=== PATIENT | female | born 1995 | race Caucasian/White ===

== ENCOUNTER 2019-06-23 02:04 | Inpatient (IN) | payer OTHER ==
[2019-06-23] MEDS ORDERED: D10/0.45% NACL + KCL 40 MEQ 1,000 ML IV (02:13)
[2019-06-23] MEDS ORDERED: DEXTROSE 10%/0.45% NACL 1,000 ML IV (02:13)
[2019-06-23] MEDS ORDERED: NS + KCL 40 MEQ 1,000 ML IV (02:13)
[2019-06-23] MEDS: LACTATED RINGER'S 650 ML IV (02:29)
[2019-06-23] MEDS: SOD CHLORIDE 0.9% 1,000 ML IV ×2 (02:29→05:54)
[2019-06-23] MEDS ORDERED: DEXTROSE 50% 50 ML SYRINGE IV ×2 (02:30)
[2019-06-23 02:36] LABS: AADO2 Arterial 65.1 mmHg (7.0-24.0); Arterial Base Excess -20.8 mmol/L (-3.0-3); Arterial Blood Gas Oxygen Sat 99.5 mmHG (95.0-98.0); Arterial COHb 0.3 % (0.0-3.0); Arterial Fraction of Oxyhgb 98.7 % (93.0-99.0); Arterial HCO3 6.2 mmol/L (22.0-26.0); Arterial MetHb 0.5 % (0.0-1.5); Arterial pCO2 18.5 mmhg (35-45); MODE MASK - NRB; Site LB
[2019-06-23] MEDS: INSULIN REGULAR, HUMAN 100 UNIT in SOD CHLORIDE 0.9% 100 ML IV (03:27)
[2019-06-23 03:30] LABS: ADD MAN DIFF? NO
[2019-06-23 03:43] LABS: HEMOGLOBIN A1C > 14.0 % (0-5.9)
[2019-06-23 03:43] LABS: ADD UMIC YES; UR ASCORBIC ACID NEGATIVE (NEGATIVE); UR BILIRUBIN (Dip) NEGATIVE (NEGATIVE); UR BLOOD (Dip) NEGATIVE (NEGATIVE); UR CLARITY CLEAR (CLEAR); UR COLOR YELLOW (YELLOW); UR GLUCOSE (Dip) 3+ mg/dL (NEGATIVE); UR KETONES (Dip) 1+ mg/dL (NEGATIVE); UR LEUKOCYTE ESTERASE (Dip) NEGATIVE Leu/ul (NEGATIVE); UR NITRITE (Dip) NEGATIVE (NEGATIVE); UR RBC 1 /HPF (0-5); UR SPECIFIC GRAVITY (Dip) 1.021 (1.003-1.030); UR TOTAL PROTEIN (Dip) 1+ mg/dl (NEGATIVE); UR UROBILINOGEN (Dip) NEGATIVE (NEGATIVE); UR WBC 1 /HPF (0-5)
[2019-06-23 04:04] LABS: ABNORMAL IP MESSAGE 1; BASOPHIL # 0.1 10^3/ul (0.0-0.1); BASOPHILS % 0.4 % (0.0-2.0); HEMATOCRIT 46.1 % (37.0-47.0); HEMOGLOBIN 13.3 g/dl (12.0-16.0); LYMPHOCYTES # 1.6 10^3/ul (0.8-2.9); LYMPHOCYTES % 13.8 % (15.0-51.0); MEAN CORPUSCULAR HEMOGLOBIN 28.1 pg (29.0-33.0); MEAN CORPUSCULAR HGB CONC 28.9 g/dl (32.0-37.0); MEAN CORPUSCULAR VOLUME 97.3 fl (82.0-101.0); MEAN PLATELET VOLUME 13.8 fl (7.4-10.4); MONOCYTE # 0.4 10^3/ul (0.3-0.9); MONOCYTES % 3.2 % (0.0-11.0); NEUTROPHIL # 9.2 10^3/ul (1.6-7.5); NEUTROPHILS % 80.4 % (39.0-77.0); NUCLEATED RED BLOOD CELLS% 0.3 /100WBC (0.0-0.0); PLATELET COUNT 211 10^3/UL (140-415); RED BLOOD COUNT 4.74 10^6/ul (4.20-5.40); RED CELL DISTRIBUTION WIDTH 16.4 % (11.5-14.5)
[2019-06-23 04:04] LABS: WHITE BLOOD COUNT 11.4 10^3/ul (4.8-10.8)
[2019-06-23 04:06] LABS: POSITIVE DIFF @See below
[2019-06-23 04:59] LABS: MODE NASAL CANNULA; MetHgb Venous 0.6 %; Sample Type Blood venous; Site VENOUS LINE; Venous COHb 0.3 %; Venous Fraction OxyHgb 86.6 %; Venous Oxygen Sat 87.4 mmHG (55.0-75.0)
[2019-06-23 05:18] LABS: ANION GAP 28 (5-13); CALCIUM 7.7 mg/dl (8.4-10.2); CHLORIDE 118 mmol/L (97-110); MAGNESIUM 3.7 mg/dl (1.7-2.5); PHOSPHORUS 9.9 mg/dl (2.5-4.9); SODIUM 152 mmol/L (135-144)
[2019-06-23 05:27] LABS: Estimated GFR 10 mL/min (>60)
[2019-06-23] MEDS: NA BICARBONATE 8.4% 50 ML SYG IV ×2 (05:30)
[2019-06-23 05:36] LABS: SALICYLATE < 1.0 mg/dl (5.0-30.0)
[2019-06-23 05:36] LABS: ACETAMINOPHEN < 10.0 ug/ml (10.0-30.0)
[2019-06-23 05:39] LABS: BLOOD UREA NITROGEN 161 mg/dl (7-20); CREATININE 5.22 mg/dl (0.44-1.00)
[2019-06-23 05:42] LABS: CARBON DIOXIDE 6 mmol/L (21-31); GLUCOSE 1052 mg/dl (70-220)
[2019-06-23] MEDS ORDERED: ONDANSETRON 4 MG INJ IV (06:00)
[2019-06-23] MEDS ORDERED: ACETAMINOPHEN 325 MG TAB PO ×2 (06:00→08:00)
[2019-06-23 06:03] LABS: AMPHETAMINE/METHAMPHETAMINE Negative (NEGATIVE); BARBITURATES Negative (NEGATIVE); BENZODIAZEPINES Negative (NEGATIVE); CANNABINOIDS Negative (NEGATIVE); COCAINE Negative (NEGATIVE); OPIATES Negative (NEGATIVE)
[2019-06-23 06:23] LABS: MODE NASAL CANNULA; MetHgb Venous 0.4 %; Site VENOUS LINE; Venous COHb 0.3 %; Venous Fraction OxyHgb 86.5 %; Venous Oxygen Sat 87.1 mmHG (55.0-75.0); Venous Total Hemglobin 12.7 g/dl
[2019-06-23 06:25] LABS: ETHANOL < 10.0 mg/dl (0-0)
[2019-06-23 06:28] LABS: ACETONE POSITIVE (NEGATIVE)
[2019-06-23 07:10] LABS: ANION GAP 23 (5-13); CALCIUM 7.5 mg/dl (8.4-10.2); CHLORIDE 124 mmol/L (97-110); MAGNESIUM 3.7 mg/dl (1.7-2.5); PHOSPHORUS 8.2 mg/dl (2.5-4.9); SODIUM 156 mmol/L (135-144)
[2019-06-23 07:16] LABS: CARBON DIOXIDE 9 mmol/L (21-31); CREATININE 4.76 mg/dl (0.44-1.00); Estimated GFR 11 mL/min (>60)
[2019-06-23 07:18] LABS: BLOOD UREA NITROGEN 149 mg/dl (7-20)
[2019-06-23] MEDS: NS + KCL 30 MEQ 1,000 ML IV ×3 (07:23→11:58)
[2019-06-23 07:33] LABS: GLUCOSE 861 mg/dl (70-220)
[2019-06-23] MEDS ORDERED: HYDROmorphONE 0.5 MG/0.5 ML SYG IV (08:00)
[2019-06-23 09:46] LABS: MODE ROOM AIR; MetHgb Venous 0.3 %; Sample Type Blood venous; Site VENOUS LINE; Venous COHb 0.1 %; Venous Fraction OxyHgb 77.7 %; Venous Total Hemglobin 12.9 g/dl
[2019-06-23 10:12] LABS: ANION GAP 15 (5-13); CALCIUM 7.5 mg/dl (8.4-10.2); CARBON DIOXIDE 14 mmol/L (21-31); CHLORIDE 132 mmol/L (97-110); MAGNESIUM 3.5 mg/dl (1.7-2.5); PHOSPHORUS 5.1 mg/dl (2.5-4.9); POTASSIUM 5.1 mmol/L (3.5-5.1)
[2019-06-23 10:17] LABS: Estimated GFR 13 mL/min (>60)
[2019-06-23 10:23] LABS: BLOOD UREA NITROGEN 141 mg/dl (7-20); CREATININE 4.12 mg/dl (0.44-1.00)
[2019-06-23 10:25] LABS: GLUCOSE 638 mg/dl (70-220); SODIUM 161 mmol/L (135-144)
[2019-06-23 13:45] LABS: ADD UMIC YES; UR ASCORBIC ACID NEGATIVE (NEGATIVE); UR BACTERIA FEW /HPF (NONE SEEN); UR BILIRUBIN (Dip) NEGATIVE (NEGATIVE); UR BLOOD (Dip) 2+ mg/dL (NEGATIVE); UR BUDDING YEAST FEW /HPF (NONE SEEN); UR CLARITY CLOUDY (CLEAR); UR COLOR YELLOW (YELLOW); UR GLUCOSE (Dip) 3+ mg/dL (NEGATIVE); UR KETONES (Dip) 1+ mg/dL (NEGATIVE); UR LEUKOCYTE ESTERASE (Dip) NEGATIVE Leu/ul (NEGATIVE); UR MUCUS FEW /HPF (NONE SEEN); UR NITRITE (Dip) NEGATIVE (NEGATIVE); UR RBC 1 /HPF (0-5); UR SPECIFIC GRAVITY (Dip) 1.013 (1.003-1.030); UR TOTAL PROTEIN (Dip) NEGATIVE (NEGATIVE); UR UROBILINOGEN (Dip) NEGATIVE (NEGATIVE); UR WBC 3 /HPF (0-5)
[2019-06-23 14:17] LABS: MODE ROOM AIR; MetHgb Venous 0.5 %; Sample Type Blood venous; Site VENOUS LINE; Venous COHb 0.3 %; Venous Fraction OxyHgb 89.4 %; Venous Oxygen Sat 90.1 mmHG (55.0-75.0); Venous Total Hemglobin 12.4 g/dl
[2019-06-23 15:04] LABS: ANION GAP 6 (5-13); BLOOD UREA NITROGEN 117 mg/dl (7-20); CALCIUM 7.6 mg/dl (8.4-10.2); CARBON DIOXIDE 20 mmol/L (21-31); CHLORIDE 137 mmol/L (97-110); CREATININE 3.36 mg/dl (0.44-1.00); Estimated GFR 17 mL/min (>60); GLUCOSE 348 mg/dl (70-220); MAGNESIUM 3.3 mg/dl (1.7-2.5); PHOSPHORUS 2.7 mg/dl (2.5-4.9); POTASSIUM 4.9 mmol/L (3.5-5.1)
[2019-06-23 15:19] LABS: SODIUM 163 mmol/L (135-144)
[2019-06-23] MEDS: D10/0.45% NACL + KCL 30 MEQ 1,000 ML IV (15:48)
[2019-06-23] MEDS: POTASSIUM CHLORIDE 30 MEQ in SOD CHLORIDE 0.45% 1,000 ML IV (15:59)
[2019-06-23] MEDS ORDERED: GLUCOSE GEL 15 GRAM TUBE PO ×2 (16:00)
[2019-06-23] MEDS: INSULIN GLARGINE [LANTus] (100 UNITS/ML) SYG SC (16:41)
[2019-06-23] MEDS: INSULIN ASPART [NOVOLOG] 3 ML PEN SC ×3 (17:34→21:48)
[2019-06-23 18:37] LABS: ANION GAP 4 (5-13); BLOOD UREA NITROGEN 101 mg/dl (7-20); CALCIUM 7.5 mg/dl (8.4-10.2); CARBON DIOXIDE 19 mmol/L (21-31); CHLORIDE 138 mmol/L (97-110); CREATININE 2.67 mg/dl (0.44-1.00); Estimated GFR 22 mL/min (>60); GLUCOSE 349 mg/dl (70-220); MAGNESIUM 3.1 mg/dl (1.7-2.5); POTASSIUM 4.8 mmol/L (3.5-5.1)
[2019-06-23 18:43] LABS: SODIUM 161 mmol/L (135-144)
[2019-06-24] MEDS: Insulin NOVOLOG SS MODERATE Algorithm(NPO/TPN/ENTERAL FEEDS) SC ×2 (00:57→05:17)
[2019-06-24] MEDS: ACCU-CHEK XX ×12 (01:15→23:27)
[2019-06-24] MEDS ORDERED: INSULIN ASPART [NOVOLOG] 3 ML PEN SC (01:35)
[2019-06-24 05:02] LABS: ADD MAN DIFF? NO
[2019-06-24 05:30] LABS: ABNORMAL IP MESSAGE 1; BASOPHILS % 0.2 % (0.0-2.0); EOSINOPHILS % 0.1 % (0.0-7.0); HEMATOCRIT 38.9 % (37.0-47.0); HEMOGLOBIN 12.4 g/dl (12.0-16.0); LYMPHOCYTES # 1.1 10^3/ul (0.8-2.9); LYMPHOCYTES % 7.7 % (15.0-51.0); MEAN CORPUSCULAR HEMOGLOBIN 27.8 pg (29.0-33.0); MEAN CORPUSCULAR HGB CONC 31.9 g/dl (32.0-37.0); MEAN CORPUSCULAR VOLUME 87.2 fl (82.0-101.0); MEAN PLATELET VOLUME 12.5 fl (7.4-10.4); MONOCYTE # 0.9 10^3/ul (0.3-0.9); MONOCYTES % 6.2 % (0.0-11.0); NEUTROPHIL # 12.6 10^3/ul (1.6-7.5); NEUTROPHILS % 85.1 % (39.0-77.0); PLATELET COUNT 98 10^3/UL (140-415); RED BLOOD COUNT 4.46 10^6/ul (4.20-5.40); RED CELL DISTRIBUTION WIDTH 15.4 % (11.5-14.5)
[2019-06-24 05:30] LABS: WHITE BLOOD COUNT 14.8 10^3/ul (4.8-10.8)
[2019-06-24 05:31] LABS: POSITIVE DIFF @See below
[2019-06-24 05:52] LABS: ANION GAP 5 (5-13); BLOOD UREA NITROGEN 73 mg/dl (7-20); CALCIUM 8.1 mg/dl (8.4-10.2); CARBON DIOXIDE 23 mmol/L (21-31); CHLORIDE 140 mmol/L (97-110); CREATININE 1.84 mg/dl (0.44-1.00); Estimated GFR 34 mL/min (>60); GLUCOSE 247 mg/dl (70-220); PHOSPHORUS 2.4 mg/dl (2.5-4.9); POTASSIUM 4.6 mmol/L (3.5-5.1)
[2019-06-24 05:54] LABS: SODIUM 168 mmol/L (135-144)
[2019-06-24] MEDS: INSULIN ASPART [NOVOLOG] 3 ML PEN SC ×5 (06:00→12:31)
[2019-06-24] MEDS ORDERED: INSULIN GLARGINE [LANTus] (100 UNITS/ML) SYG SC (08:00)
[2019-06-24] MEDS: DEXTROSE 5% 1,000 ML IV ×3 (08:24→21:29)
[2019-06-24] MEDS: INSULIN GLARGINE [LANTus] (100 UNITS/ML) SYG SC (09:11)
[2019-06-24] MEDS: ERYTHROMYCIN BASE (DR) 250 MG CAP PO ×4 (10:00→21:32)
[2019-06-24] MEDS: ONDANSETRON 4 MG INJ IV (12:50)
[2019-06-24] MEDS ORDERED: DEXTROSE 50% 50 ML SYRINGE IV ×2 (13:00)
[2019-06-24 14:41] LABS: SODIUM 164 mmol/L (135-144)
[2019-06-24] MEDS: INSULIN HUMAN REGULAR 100 UNIT in SOD CHLORIDE 0.9% 99 ML IV (15:00)
[2019-06-24] MEDS: METOCLOPRAMIDE 10 MG INJ IV (18:08)
[2019-06-25] MEDS: METOCLOPRAMIDE 10 MG INJ IV ×5 (00:37→23:36)
[2019-06-25] MEDS: ACCU-CHEK XX ×15 (00:41→14:29)
[2019-06-25] MEDS: DEXTROSE 5% 1,000 ML IV ×3 (03:56→18:31)
[2019-06-25] MEDS: INSULIN HUMAN REGULAR 100 UNIT in SOD CHLORIDE 0.9% 99 ML IV (04:00)
[2019-06-25 04:47] LABS: ADD MAN DIFF? NO
[2019-06-25] MEDS: ERYTHROMYCIN BASE (DR) 250 MG CAP PO ×3 (05:01→21:26)
[2019-06-25 05:06] LABS: WHITE BLOOD COUNT 11.7 10^3/ul (4.8-10.8)
[2019-06-25 05:06] LABS: ABNORMAL IP MESSAGE 1; BASOPHILS % 0.2 % (0.0-2.0); EOSINOPHILS # 0.1 10^3/ul (0.0-0.5); EOSINOPHILS % 0.5 % (0.0-7.0); HEMATOCRIT 38.3 % (37.0-47.0); HEMOGLOBIN 11.7 g/dl (12.0-16.0); LYMPHOCYTES # 1.7 10^3/ul (0.8-2.9); LYMPHOCYTES % 14.9 % (15.0-51.0); MEAN CORPUSCULAR HEMOGLOBIN 27.7 pg (29.0-33.0); MEAN CORPUSCULAR HGB CONC 30.5 g/dl (32.0-37.0); MEAN CORPUSCULAR VOLUME 90.5 fl (82.0-101.0); MEAN PLATELET VOLUME 13.6 fl (7.4-10.4); MONOCYTE # 0.7 10^3/ul (0.3-0.9); MONOCYTES % 6.1 % (0.0-11.0); NEUTROPHILS % 77.4 % (39.0-77.0); NUCLEATED RED BLOOD CELLS% 0.2 /100WBC (0.0-0.0); PLATELET COUNT 68 10^3/UL (140-415); RED BLOOD COUNT 4.23 10^6/ul (4.20-5.40); RED CELL DISTRIBUTION WIDTH 15.6 % (11.5-14.5)
[2019-06-25 05:22] LABS: ANION GAP 1 (5-13); BLOOD UREA NITROGEN 31 mg/dl (7-20); CALCIUM 8.2 mg/dl (8.4-10.2); CARBON DIOXIDE 29 mmol/L (21-31); CHLORIDE 124 mmol/L (97-110); CREATININE 1.06 mg/dl (0.44-1.00); Estimated GFR > 60 mL/min (>60); GLUCOSE 113 mg/dl (70-220); POTASSIUM 3.3 mmol/L (3.5-5.1); SODIUM 154 mmol/L (135-144)
[2019-06-25 05:25] LABS: POSITIVE DIFF @See below
[2019-06-25] MEDS: INSULIN ASPART [NOVOLOG] 3 ML PEN SC ×5 (11:00→21:00)
[2019-06-25] MEDS: ONDANSETRON 4 MG INJ IV ×2 (11:21→18:31)
[2019-06-25] MEDS: INSULIN GLARGINE [LANTus] (100 UNITS/ML) SYG SC (12:44)
[2019-06-26] MEDS: DEXTROSE 5% 1,000 ML IV ×4 (01:18→14:09)
[2019-06-26] MEDS: METOCLOPRAMIDE 10 MG INJ IV ×2 (04:59→12:41)
[2019-06-26] MEDS: ERYTHROMYCIN BASE (DR) 250 MG CAP PO ×2 (04:59→14:00)
[2019-06-26] MEDS: INSULIN ASPART [NOVOLOG] 3 ML PEN SC ×4 (09:25→12:41)
[2019-06-26] MEDS: INSULIN GLARGINE [LANTus] (100 UNITS/ML) SYG SC (09:27)
[2019-06-26 11:59] LABS: HEPATITIS B SURFACE ANTIGEN NEGATIVE (NEGATIVE)
[2019-06-26 12:16] LABS: HEPATITIS C VIRAL ANTIBODY NEGATIVE (NEGATIVE); HIV 1&2 ANTIBODY NEGATIVE (NEGATIVE)
== END 2019-06-26 15:15 | disposition home or self-care (01) | DRG 638 ==
LOC: 2NE 06-26 05:40 → E/R 02:04 → ICU 05:55
PROVIDERS: Legal Medicine
PROC: 4A133R1 Monitoring of Arterial Saturation, Peripheral, Percutaneous Approach (ICD-10-PCS; principal; 2019-06-23)
DX: E10.10 Type 1 diabetes mellitus with ketoacidosis without coma (principal); E87.0 Hyperosmolality and hypernatremia; N17.9 Acute kidney failure, unspecified; E86.0 Dehydration; E10.43 Type 1 diabetes mellitus with diabetic autonomic (poly)neuropathy; K31.84 Gastroparesis; D69.6 Thrombocytopenia, unspecified; E10.22 Type 1 diabetes mellitus with diabetic chronic kidney disease; N18.9 Chronic kidney disease, unspecified; Z79.4 Long term (current) use of insulin; Z91.14 Patient's other noncompliance with medication regimen
CPT/HCPCS: 36415; 36600; 70450; 71045; 80048; 80307; 81001; 81025; 82010; 82803; 82962; 83036; 83735; 84100; 84295; 84703; 85025; 86703; 86803; 87081; 87340; 93005; 96361; 96374; 97116; 97163; 97530; 99285-25

== ENCOUNTER 2019-06-29 16:41 | Observation (INO) | payer OTHER ==
[2019-06-29] MEDS: DEXTROSE 50% 50 ML SYRINGE IV (16:45)
[2019-06-29] MEDS ORDERED: ONDANSETRON INJ 8 MG in DEXTROSE 5% 50 ML IV (16:53)
[2019-06-29] MEDS ORDERED: ONDANSETRON 4 MG INJ (17:04)
[2019-06-29] MEDS: SOD CHLORIDE 0.9% 1,000 ML IV (17:09)
[2019-06-29] MEDS: FAMOTIDINE 20 MG INJ IV (17:09)
[2019-06-29] MEDS: ONDANSETRON 4 MG INJ IV (17:09)
[2019-06-29 17:24] LABS: ABNORMAL IP MESSAGE 1; HEMATOCRIT 34.5 % (37.0-47.0); HEMOGLOBIN 10.9 g/dl (12.0-16.0); MEAN CORPUSCULAR HEMOGLOBIN 27.7 pg (29.0-33.0); MEAN CORPUSCULAR HGB CONC 31.6 g/dl (32.0-37.0); MEAN CORPUSCULAR VOLUME 87.8 fl (82.0-101.0); PLATELET COUNT 241 10^3/UL (140-415); RED BLOOD COUNT 3.93 10^6/ul (4.20-5.40); RED CELL DISTRIBUTION WIDTH 13.4 % (11.5-14.5)
[2019-06-29 17:24] LABS: WHITE BLOOD COUNT 14.3 10^3/ul (4.8-10.8)
[2019-06-29 17:26] LABS: ADD MAN DIFF? YES; POSITIVE DIFF @See below
[2019-06-29 17:27] LABS: INR 0.93; PROTIME 12.6 Sec (11.9-14.9)
[2019-06-29 17:28] LABS: PARTIAL THROMBOPLASTIN TIME 30.1 Sec (23.0-35.0)
[2019-06-29 17:30] LABS: ALANINE AMINOTRANSFERASE 68 IU/L (13-69); ALBUMIN 3.1 g/dl (3.3-4.9); ALBUMIN/GLOBULIN RATIO 0.86; ALKALINE PHOSPHATASE 127 IU/L (42-121); AMYLASE 142 U/L (11-123); ANION GAP 4 (5-13); ASPARTATE AMINO TRANSFERASE 56 IU/L (15-46); BILIRUBIN,INDIRECT 0.2 mg/dl (0-1.1); BILIRUBIN,TOTAL 0.2 mg/dl (0.2-1.3); BLOOD UREA NITROGEN 15 mg/dl (7-20); CALCIUM 8.9 mg/dl (8.4-10.2); CARBON DIOXIDE 37 mmol/L (21-31); CHLORIDE 99 mmol/L (97-110); CREATINE KINASE 287 IU/L (23-200); Estimated GFR > 60 mL/min (>60); LIPASE 299 U/L (23-300); SODIUM 140 mmol/L (135-144); TOTAL PROTEIN 6.7 g/dl (6.1-8.1)
[2019-06-29 17:37] LABS: POTASSIUM 2.7 mmol/L (3.5-5.1)
[2019-06-29 17:38] LABS: GLUCOSE 22 mg/dl (70-220)
[2019-06-29 17:41] LABS: CK INDEX 0.3; CK-MB 0.96 ng/ml (0.0-2.4); TROPONIN-I < 0.012 ng/ml (0.000-0.120)
[2019-06-29 18:10] LABS: BAND NEUTROPHILS #M 0.7 10^3/ul (0.0-0.6); BAND NEUTROPHILS % (M) 5 % (0-4); GIANT THROMBO% (M) 2 % (0-0); LYMPHOCYTES #M 4.4 10^3/ul (0.8-2.9); LYMPHOCYTES % (M) 31 % (15-51); METAMYELOCYTES #M 0.1 10^3/ul (0.0-0.0); METAMYELOCYTES %M 1 % (0-0); MONOCYTE #M 0.7 10^3/ul (0.3-0.9); MONOCYTES % (M) 5 % (0-11); MYELOCYTES #M 0.2 10^3/ul (0.0-0.0); MYELOCYTES % (M) 2 % (0-0); PLATELET ESTIMATE NORMAL; REACTIVE LYMPHOCYTES #M 0.1 10^3/ul (0.0-0.0); REACTIVE LYMPHOCYTES% (M) 1 % (0-0); SEGMENTED NEUTROPHILS (M) % 55 % (39-77); SMUDGE%M 1 % (0-0)
[2019-06-29] MEDS: POTASSIUM CHLORIDE 100 ML IVPB (19:05)
[2019-06-29] MEDS ORDERED: ONDANSETRON 4 MG INJ IV (21:30)
[2019-06-29] MEDS ORDERED: ACETAMINOPHEN 325 MG TAB PO (21:30)
[2019-06-29] MEDS ORDERED: GLUCOSE GEL 15 GRAM TUBE PO ×2 (23:30)
[2019-06-29] MEDS ORDERED: DEXTROSE 50% 50 ML SYRINGE IV ×2 (23:30)
[2019-06-29] MEDS ORDERED: GLUCAGON 1 MG INJ IM (23:30)
[2019-06-29] MEDS ORDERED: GLUCOSE GEL 15 GRAM TUBE BUCCAL (23:30)
[2019-06-30] MEDS: ERYTHROMYCIN BASE (DR) 250 MG CAP PO ×4 (00:15→22:00)
[2019-06-30 05:31] LABS: ABNORMAL IP MESSAGE 1; HEMATOCRIT 33.6 % (37.0-47.0); HEMOGLOBIN 10.5 g/dl (12.0-16.0); MEAN CORPUSCULAR HEMOGLOBIN 27.6 pg (29.0-33.0); MEAN CORPUSCULAR HGB CONC 31.3 g/dl (32.0-37.0); MEAN CORPUSCULAR VOLUME 88.4 fl (82.0-101.0); MEAN PLATELET VOLUME 11.4 fl (7.4-10.4); PLATELET COUNT 262 10^3/UL (140-415); RED CELL DISTRIBUTION WIDTH 13.5 % (11.5-14.5)
[2019-06-30 05:31] LABS: WHITE BLOOD COUNT 11.3 10^3/ul (4.8-10.8)
[2019-06-30 06:01] LABS: ANION GAP 5 (5-13); BLOOD UREA NITROGEN 11 mg/dl (7-20); CALCIUM 8.6 mg/dl (8.4-10.2); CARBON DIOXIDE 32 mmol/L (21-31); CHLORIDE 103 mmol/L (97-110); CREATININE 0.88 mg/dl (0.44-1.00); Estimated GFR > 60 mL/min (>60); GLUCOSE 107 mg/dl (70-220); POTASSIUM 3.1 mmol/L (3.5-5.1); SODIUM 140 mmol/L (135-144)
[2019-06-30 06:05] LABS: POSITIVE DIFF @See below
[2019-06-30 06:06] LABS: ADD MAN DIFF? YES
[2019-06-30 07:45] LABS: BAND NEUTROPHILS #M 0.4 10^3/ul (0.0-0.6); BAND NEUTROPHILS % (M) 4 % (0-4); GIANT THROMBO% (M) 2 % (0-0); LYMPHOCYTES % (M) 27 % (15-51); METAMYELOCYTES #M 0.1 10^3/ul (0.0-0.0); METAMYELOCYTES %M 1 % (0-0); MONOCYTE #M 0.6 10^3/ul (0.3-0.9); MONOCYTES % (M) 6 % (0-11); MYELOCYTES #M 0.1 10^3/ul (0.0-0.0); MYELOCYTES % (M) 1 % (0-0); PLATELET ESTIMATE NORMAL; PROMYELOCYTES #M 0.1 10^3/ul (0-0); PROMYELOCYTES % (M) 1 % (0-0); SEG NEUT #M 6.8 10^3/ul (1.6-7.5); SEGMENTED NEUTROPHILS (M) % 60 % (39-77); SMUDGE%M 20 % (0-0)
[2019-06-30] MEDS: INSULIN ASPART [NOVOLOG] 3 ML PEN SC ×4 (07:50→21:09)
[2019-06-30] MEDS: POTASSIUM CHLORIDE (SR) 20 MEQ TAB PO ×3 (08:21→21:00)
[2019-06-30] MEDS: METOCLOPRAMIDE 10 MG TAB PO ×3 (08:21→17:27)
[2019-06-30] MEDS: ONDANSETRON 4 MG INJ IV (11:01)
[2019-06-30] MEDS ORDERED: POTASSIUM CHLORIDE (SR) 20 MEQ TAB PO (13:05)
[2019-06-30] MEDS: SOD CHLORIDE 0.9% 1,000 ML IV (13:57)
[2019-06-30] MEDS: INSULIN GLARGINE [LANTus] (100 UNITS/ML) SYG SC (21:08)
[2019-07-01] MEDS: ERYTHROMYCIN BASE (DR) 250 MG CAP PO ×2 (05:45→14:00)
[2019-07-01] MEDS: SOD CHLORIDE 0.9% 1,000 ML IV ×2 (05:46→09:30)
[2019-07-01 06:30] LABS: ADD MAN DIFF? NO
[2019-07-01 06:44] LABS: RETICULOCYTE RBC 3.17; WHITE BLOOD COUNT 10.5 10^3/ul (4.8-10.8)
[2019-07-01 06:44] LABS: ABNORMAL IP MESSAGE 1; BASOPHILS % 0.4 % (0.0-2.0); EOSINOPHILS % 0.4 % (0.0-7.0); HEMATOCRIT 28.7 % (37.0-47.0); HEMOGLOBIN 8.9 g/dl (12.0-16.0); LYMPHOCYTES # 3.5 10^3/ul (0.8-2.9); MEAN CORPUSCULAR HEMOGLOBIN 27.3 pg (29.0-33.0); MEAN PLATELET VOLUME 10.5 fl (7.4-10.4); MONOCYTE # 0.9 10^3/ul (0.3-0.9); MONOCYTES % 8.1 % (0.0-11.0); NEUTROPHIL # 5.5 10^3/ul (1.6-7.5); NEUTROPHILS % 52.9 % (39.0-77.0); PLATELET COUNT 306 10^3/UL (140-415); RED BLOOD COUNT 3.26 10^6/ul (4.20-5.40); RED CELL DISTRIBUTION WIDTH 13.2 % (11.5-14.5); RETICULOCYTE COUNT # 0.021 X10^6 (0.020-0.110); RETICULOCYTE COUNT % 0.7 % (0.5-1.5)
[2019-07-01 06:49] LABS: POSITIVE DIFF @See below
[2019-07-01 06:53] LABS: IRON 25 ug/dl (35-150)
[2019-07-01 06:56] LABS: LACTATE DEHYDROGENASE 697 IU/L (313-618); MAGNESIUM 1.5 mg/dl (1.7-2.5)
[2019-07-01 06:56] LABS: PHOSPHORUS 3.6 mg/dl (2.5-4.9)
[2019-07-01 06:58] LABS: ALANINE AMINOTRANSFERASE 49 IU/L (13-69); ALBUMIN 2.4 g/dl (3.3-4.9); ALBUMIN/GLOBULIN RATIO 0.77; ALKALINE PHOSPHATASE 123 IU/L (42-121); ANION GAP 1 (5-13); ASPARTATE AMINO TRANSFERASE 34 IU/L (15-46); BILIRUBIN,INDIRECT 0.2 mg/dl (0-1.1); BILIRUBIN,TOTAL 0.2 mg/dl (0.2-1.3); BLOOD UREA NITROGEN 9 mg/dl (7-20); CALCIUM 7.9 mg/dl (8.4-10.2); CARBON DIOXIDE 34 mmol/L (21-31); CHLORIDE 101 mmol/L (97-110); CREATININE 0.78 mg/dl (0.44-1.00); Estimated GFR > 60 mL/min (>60); GLUCOSE 178 mg/dl (70-220); POTASSIUM 3.4 mmol/L (3.5-5.1); SODIUM 136 mmol/L (135-144); TOTAL PROTEIN 5.5 g/dl (6.1-8.1)
[2019-07-01 07:02] LABS: % IRON SATURATION 13 % SAT (22-52); TOTAL IRON BINDING CAPACITY 192 ug/dl (241-421)
[2019-07-01 08:35] LABS: FOLATE 12.2 ng/ml (2.8-20.0)
[2019-07-01] MEDS: METOCLOPRAMIDE 10 MG TAB PO ×2 (08:48→11:30)
[2019-07-01] MEDS: INSULIN ASPART [NOVOLOG] 3 ML PEN SC ×2 (08:52→12:57)
[2019-07-01] MEDS: ONDANSETRON 4 MG INJ IV (08:57)
[2019-07-01] MEDS: FERROUS SULFATE (EC) 325 MG TAB PO (12:53)
[2019-07-01] MEDS: POTASSIUM CHLORIDE (SR) 20 MEQ TAB PO (12:54)
[2019-07-01] MEDS: MAGNESIUM SULFATE 2 GM/50 ML 50 ML IVPB (12:55)
== END 2019-07-01 15:30 | disposition home health service (06) ==
LOC: E/R 16:41 → MS1 21:23
PROVIDERS: Internal Medicine
DX: E10.649 Type 1 diabetes mellitus with hypoglycemia without coma (principal); R46.89 Other symptoms and signs involving appearance and behavior; E86.0 Dehydration; D72.829 Elevated white blood cell count, unspecified; E10.43 Type 1 diabetes mellitus with diabetic autonomic (poly)neuropathy; K31.84 Gastroparesis; E87.6 Hypokalemia; D64.9 Anemia, unspecified; Z79.4 Long term (current) use of insulin
CPT/HCPCS: 36415; 71045; 80048; 80053; 82150; 82550; 82553; 82607; 82746; 82962; 83540; 83615; 83690; 83735; 84100; 84484; 84703; 85025; 85045; 85610; 85730; 93005; 96374; 96375; 99285-25